=== PATIENT | male | born 1995 | race American Indian/Alaskan Native ===

== ENCOUNTER 2020-04-12 19:19 | Emergency (ER) | payer SELFPAY ==
[2020-04-12 20:07] VITALS: BP 141/91
== END 2020-04-12 21:07 | disposition left against medical advice (07) ==
LOC: ED 19:19
DX: F41.9 Anxiety disorder, unspecified (principal); Z53.21 Procedure and treatment not carried out due to patient leaving prior to being seen by health care provider